=== PATIENT | female | born 1975 | race Caucasian/White ===

== ENCOUNTER 2018-07-21 23:48 | Emergency (ER) | payer MEDICAID ==
[~2018-07-21] VITALS: Ht 172.7 cm; Wt 74.3 kg
[~2018-07-21 23:48] MED LIST: CIPR500T4 PO; HYDR-4011 PO; IBUP-1542 PO
[2018-07-21 23:52] VITALS: Ht 172.7 cm; Wt 74.3 kg
[2018-07-22] MEDS ORDERED: KETOROLAC 30 MG INJ IM STA (02:50)
[2018-07-22] MEDS ORDERED: ONDANSETRON (ODT) 4 MG TAB ODT STA (02:51)
[2018-07-22] MEDS ORDERED: IBUP-1542 PO (02:58)
--- NOTE | 2018-07-22 03:01 | ERD ---
ER Documentation Chief Complaint Chief Complaint L flank pain today only w/ nausea/vomiting. no urinary sx HPI 42-year-old female with history of frequent kidney stones presented to ED comp laining of left flank pain since earlier today. Patient states that the pain migrates from the left flank to the left lower quadrant. The pain comes and goes. Patient states that she does not drink much water. Patient reports feeling nauseous, but denies vomiting. Denies fever or chills. Denies dysuria. ROS All systems reviewed and are negative except as per history of present illness. Medications Home Meds Active Scripts Naproxen* (Naprosyn*) 500 Mg Tablet, 500 MG PO BID PRN for PAIN AND/OR INFLAMMATION, #30 TAB Prov:NNEKA TAVARES NP 07/22/18 Hydrocodone/Acetaminophen ([place] 5-325 Tablet) 1 Each Tablet, 1 TAB PO Q6H PRN for PAIN, #7 TAB Prov:CHETAN FARLEY MD 07/09/18 Ibuprofen* (Motrin*) 600 Mg Tab, 600 MG PO Q6H PRN for PAIN AND OR ELEVATED TEMP, #30 TAB Prov:CHETAN FARLEY MD 07/09/18 Ciprofloxacin Hcl* (Ciprofloxacin Hcl*) 500 Mg Tablet, 500 MG PO BID for 7 Days, TAB Prov:CHETAN FARLEY MD 07/09/18 Discontinued Scripts Ibuprofen* (Motrin*) 600 Mg Tab, 600 MG PO Q6H PRN for PAIN AND OR ELEVATED TEMP, #30 TAB Prov:NNEKA TAVARES NP 07/22/18 Allergies Allergies: Coded Allergies: No Known Allergy (Unverified , 07/09/18) PMhx/Soc History of Surgery: No Anesthesia Reaction: No Hx Neurological Disorder: No Hx Respiratory Disorders: No Hx Cardiac Disorders: No Hx Psychiatric Problems: No Hx Miscellaneous Medical Probl: Yes (Kidney Stones) Hx Alcohol Use: No Hx Substance Use: No Hx Tobacco Use: Yes (10 sticks/day ) Smoking Status: Current every day smoker Physical Exam Vitals Vital Signs Date Temp Pulse Resp B/P (MAP) Pulse Ox O2 O2 Flow FiO2 Time Delivery Rate 07/21/18 97.8 108 18 139/91 99 23:52 (107) Physical Exam General: Well-developed, well-nourished, conscious and coherent, in no distress Skin: Warm and dry without rash, good texture and turgor Head: Normocephalic without evidence of trauma Chest: Normal AP diameter. Good expansion without retractions. Nontender. Lungs are clear to auscultate bilaterally with good tidal volume Heart: Regular rate and rhythm. No murmur, rub, or gallops heard Abdomen: Soft and nontender without masses, guarding, or rebound. Bowel sounds are active. No hepatosplenomegaly Back: Without spinal tenderness. Left CVA tenderness Pelvis: Nontender to palpation and stable to compression Extremities: Full range of motion. Good strength bilaterally. No erythema, ecchymosis, or edema. Peripheral pulses are intact. Sensation intact Neuro: Alert and oriented 4, GCS 15. Results 24 hrs Laboratory Tests Test 07/22/18 02:58 07/22/18 03:00 Bedside Urine pH (LAB) 6.0 Bedside Urine Protein (LAB) 3+ Bedside Urine Glucose (UA) Negative Bedside Urine Ketones (LAB) Trace Bedside Urine Blood 3+ Bedside Urine Nitrite (LAB) Negative Bedside Urine Leukocyte Esterase (L Trace POC Beta HCG, Qualitative NEGATIVE Current Medications Medications Dose Sig/Elen Start Time Status Last (Trade) Ordered Route PRN Stop Time Admin Dose Reason Admin Ketorolac 30 mg ONCE STAT 07/22/18 DC 07/22/18 Tromethamine IM 02:50 03:06 (Toradol) 07/22/18 02:52 Ondansetron 4 mg ONCE STAT 07/22/18 DC 07/22/18 HCl (Zofran ODT 02:51 03:03 Odt) 07/22/18 02:52 PROCEDURE: Renal US. CLINICAL INDICATION: Left flank pain, history of kidney stones. TECHNIQUE: Multiple sonographic images of the kidneys were obtained. The images were reviewed on a PACS workstation. COMPARISON: No prior studies are available for comparison. FINDINGS: The right kidney measures 10.3 cm . There is no hydronephrosis. The left kidney measures 12.1 cm . There is mild fullness of the left collecting system without definite hydronephrosis. There is a 1.1 cm left-sided intrarenal calculus. The bladder is grossly unremarkable. IMPRESSION: Left-sided 1.1 cm intrarenal calculus. Mild fullness of the left collecting system without definite hydronephrosis on the current exam. Admit-r Jung, Physician Date Time Electronically viewed and signed by Migue Feng, Physician on 07/22/2018 04:05 AP/ CC: NNEKA TAVARES TESTING LEAD Procedures/MDM 42-year-old female with history of kidney stone presents the ED with intermittent left flank pain that migrated to the left lower quadrant. Toradol given to the patient in the ED. Patient reports relief of pain after Toradol. UA is negative for urinary tract infection. Renal ultrasound showed 1 cm left renal calculus, without definite hydronephrosis. I doubt obstructive urolithiasis. I doubt septic stone. Patient advised to increase fluid intake, and follow-up with her PCP for a urology referral. Patient appears well, stable for discharge and outpatient management. Medical decision making shared with patient and family. Education provided to patient and family. Patient and family expressed understanding of the plan. Medications on discharge: Naproxen. Follow-up: Primary care provider in 2-3 days or return to ED if worse. Disclaimer: Inadvertent spelling and grammatical errors are likely due to EHR/dictation software use and do not reflect on the overall quality of patient care. Also, please note that the electronic time recorded on this note does not necessarily reflect the actual time of the patient encounter. Departure Diagnosis: Primary Impression: Flank pain Condition: Stable Patient Instructions: Kidney Stone W/ Colic Referrals: COUNT INCLUDES THE [facility] YOU HAVE RECEIVED A MEDICAL SCREENING EXAM AND THE RESULTS INDICATE THAT YOU DO NOT HAVE A CONDITION THAT REQUIRES URGENT TREATMENT IN THE EMERGENCY DEPARTMENT. FURTHER EVALUATION AND TREATMENT OF YOUR CONDITION CAN WAIT UNTIL YOU ARE SEEN IN YOUR DOCTORS OFFICE WITHIN THE NEXT 1-2 DAYS. IT IS YOUR RESPONSIBILITY TO MAKE AN APPOINTMENT FOR FOLOW-UP CARE. IF YOU HAVE A PRIMARY DOCTOR --you should call your primary doctor and schedule an appointment IF YOU DO NOT HAVE A PRIMARY DOCTOR YOU CAN CALL OUR PHYSICIAN REFERRAL HOTLINE AT IF YOU CAN NOT AFFORD TO SEE A PHYSICIAN YOU CAN CHOSE FROM THE FOLLOWING [facility] [address] [facility] [facility] [address] [facility]. [facility] [address] [facility] [address] [facility] [address] [facility]. [facility] [address] Additional Instructions: Call your primary care doctor TOMORROW for an appointment during the next 2-3 days.See the doctor sooner or return here if your condition worsens before your appointment time. NNEKA TAVARES NP Jul 22, 2018 03:01
[2018-07-22] MEDS ORDERED: NAPR-985 PO (04:21)
[2018-07-22 04:48] VITALS: BP 120/77; PULSE 78; RESP 16
== END 2018-07-22 04:48 | disposition home or self-care (01) ==
LOC: FTE 23:48
DX: R10.32 Left lower quadrant pain (principal); R40.2412 Glasgow coma scale score 13-15, at arrival to emergency department; F17.210 Nicotine dependence, cigarettes, uncomplicated; R11.0 Nausea
CPT/HCPCS: 76775; 81003; 81025; 96372; J1885; Z7502; Z7610